=== PATIENT | female | born 1970 | race Two or more races ===

== ENCOUNTER 2017-02-06 18:20 | Emergency (ER) | payer MEDICAID ==
[~2017-02-06] VITALS: Ht 154.9 cm; Wt 73.2 kg
[2017-02-06] MEDS ORDERED: SODIUM CHLORIDE FLUSH 10ML SYR IVF ONE (19:00)
[2017-02-06] MEDS ORDERED: LORazepam 1MG TABLET PO ONE (19:00)
[2017-02-06] MEDS ORDERED: ASPIRIN 81 MG TABLET CHEW PO ONE (19:00)
[2017-02-06 19:07] LABS: BLOOD UREA NITROGEN 12 mg/dL (7-18)
[2017-02-06 19:12] LABS: IS PT STATUS REG ER OR PRE ER? YES
[2017-02-06 19:42] LABS: HEMATOCRIT 43.7 % (34.6-47.8); HEMOGLOBIN 14.4 g/dL (11.7-16.4); WHITE BLOOD COUNT 8.8 x10^3/uL (3.4-10)
[2017-02-06] MEDS ORDERED: ASPIRIN 81 MG TABLET CHEW ONE (19:50)
[2017-02-06 20:21] VITALS: BP 138/81
== END 2017-02-06 20:23 | disposition home or self-care (01) ==
LOC: ED 19:38
DX: R06.00 Dyspnea, unspecified (principal)
CPT/HCPCS: 36415; 71010; 80048; 82040; 83880; 84484; 85025; 93005; 99285

== ENCOUNTER 2017-09-17 11:31 | Emergency (ER) | payer MEDICAID ==
[~2017-09-17] VITALS: Ht 157.5 cm; Wt 74.3 kg
[2017-09-17 11:34] VITALS: BP 179/102
[2017-09-17 12:26] LABS: BASOPHILS # (AUTO) 0.03 x10^3/uL (0-0.1); BASOPHILS % (AUTO) 1 % (0-1); EOSINOPHILS # (AUTO) 0.07 x10^3/uL (0-0.4); EOSINOPHILS % (AUTO) 1 % (1-7); LYMPHOCYTES # (AUTO) 1.35 x10^3/uL (1-3.4); LYMPHOCYTES % (AUTO) 27 % (22-44); MD NO; MEAN CORPUSCULAR HGB CONC 32.6 g/dL (32.4-35.8); MEAN PLATELET VOLUME 8.1 fL (7.4-10.4); MONOCYTES % (AUTO) 6 % (2-9); NEUTROPHILS # (AUTO) 3.31 x10^3/uL (1.8-6.8); NEUTROPHILS % (AUTO) 65 % (42-75); PLATELET COUNT 312 x10^3/uL (130-400); RED BLOOD COUNT 4.41 x10^6/uL (3.82-5.3); RED CELL DISTRIBUTION WIDTH 14.3 % (9.6-15.2)
[2017-09-17 12:35] LABS: ALBUMIN 3.5 g/dL (3.4-5.0); ANION GAP 8 mmol/L (5-15); CALCIUM 8.8 mg/dL (8.5-10.1); CHLORIDE 108 mmol/L (98-107); CREATININE 0.96 mg/dL (0.55-1.02)
[2017-09-17 12:53] LABS: INTERNATIONAL NORMALIZED RATIO 0.97 (0.93-1.1)
== END 2017-09-17 13:23 | disposition home or self-care (01) ==
LOC: ED 13:21
DX: N93.8 Other specified abnormal uterine and vaginal bleeding (principal); N92.1 Excessive and frequent menstruation with irregular cycle; E28.319 Asymptomatic premature menopause
CPT/HCPCS: 36415; 76830; 80048; 82040; 84703; 85025; 85610; 85730; 99285

== ENCOUNTER 2018-11-08 13:06 | Emergency (ER) | payer MEDICAID ==
[~2018-11-08] VITALS: Ht 154.9 cm; Wt 73.8 kg
[2018-11-08 13:24] VITALS: BP 135/90
== END 2018-11-08 15:42 | disposition home or self-care (01) ==
LOC: ED 14:58
DX: S16.1XXA Strain of muscle, fascia and tendon at neck level, initial encounter (principal); I10 Essential (primary) hypertension; X58.XXXA Exposure to other specified factors, initial encounter; Y93.89 Activity, other specified; Y92.89 Other specified places as the place of occurrence of the external cause; Y99.8 Other external cause status
CPT/HCPCS: 96372; 99283; J1885

== ENCOUNTER 2019-04-24 15:09 | Emergency (ER) | payer MEDICAID ==
[~2019-04-24] VITALS: Ht 152.4 cm; Wt 80.1 kg
--- NOTE | 2019-04-24 15:53 | NUR ---
49 Y/O FEMALE PRESENTS TO ED WITH C/O BILATERAL KNEE PAIN AND LIGHT HEADED. PER PT "MY KNEES HAVE BEEN HURTING FOR 2 DAYS. AND SOMETIMES I GET LIGHT HEADED. I DON'T GET A HEADACHE. THAT HAS BEEN FOR TWO WEEKS. I NEVER CALLED MY PCP ABOUT IT." NADN. NO C/O ALDRIDGE. PT PLACED ON MONITORS. NO C/O TRAUMA, SYNCOPE, N/V/D, CP, SOB.
[2019-04-24] MEDS ORDERED: HYDROcodone/APAP 5/325 TABLET PO ONE (16:00)
[2019-04-24 16:14] LABS: BASOPHILS # (AUTO) 0.03 x10^3/uL (0-0.1); BASOPHILS % (AUTO) 0 % (0-1); EOSINOPHILS # (AUTO) 0.13 x10^3/uL (0-0.4); EOSINOPHILS % (AUTO) 2 % (1-7); LYMPHOCYTES % (AUTO) 24 % (22-44); MD NO; MEAN CORPUSCULAR HEMOGLOBIN 30.8 pg (27.0-34.8); MEAN CORPUSCULAR HGB CONC 33.2 g/dL (32.4-35.8); MEAN CORPUSCULAR VOLUME 92.8 fL (80-100); MEAN PLATELET VOLUME 8.2 fL (7.4-10.4); MONOCYTES # (AUTO) 0.36 x10^3/uL (0.2-0.8); MONOCYTES % (AUTO) 5 % (2-9); NEUTROPHILS # (AUTO) 4.88 x10^3/uL (1.8-6.8); NEUTROPHILS % (AUTO) 69 % (42-75); PLATELET COUNT 290 x10^3/uL (130-400); RED BLOOD COUNT 4.41 x10^6/uL (3.82-5.3); RED CELL DISTRIBUTION WIDTH 12.7 % (9.6-15.2)
[2019-04-24 16:21] LABS: ALBUMIN 3.3 g/dL (3.4-5.0); ANION GAP 4 mmol/L (5-15); CALCIUM 8.4 mg/dL (8.5-10.1); CHLORIDE 111 mmol/L (98-107); CREATININE 1.19 mg/dL (0.55-1.02)
[2019-04-24] MEDS ORDERED: HYDROcodone/APAP 5/325 TABLET ONE (16:24)
--- NOTE | 2019-04-24 16:26 | NUR ---
THIS RN IN TO ADMINISTER MEDICATION. PT OUT OF ROOM AT THIS TIME.
[2019-04-24] MEDS ORDERED: COLCHICINE 0.6 MG CAPSULE ONE ×2 (16:38→17:56)
--- NOTE | 2019-04-24 16:39 | NUR ---
PT STATES "I FEEL A LITTLE BETTER AFTER THEY TOOK BLOOD." NADN. PT STATES SHE ISN'T DRIVING.
[2019-04-24 16:43] VITALS: BP 120/71
[2019-04-24] MEDS ORDERED: COLCHICINE 0.6 MG CAPSULE PO ONE ×2 (17:00→18:00)
--- NOTE | 2019-04-24 18:07 | NUR ---
MEDICATION ADMINISTERED PER ORDER. Patient/Caregiver given discharge instructions and they have confirmed that they understand the instructions. Patient ambulatory with steady gait. PT LEFT WITH ALL PERSONAL BELONGINGS.
== END 2019-04-24 18:10 | disposition home or self-care (01) ==
LOC: ED 17:03
DX: M10.062 Idiopathic gout, left knee (principal); R42 Dizziness and giddiness; I10 Essential (primary) hypertension; F17.200 Nicotine dependence, unspecified, uncomplicated
CPT/HCPCS: 36415; 80048; 82040; 84550; 85025; 93005; 99284